=== PATIENT | female | born 1990 | race Caucasian/White ===

== ENCOUNTER 2018-12-18 16:10 | Emergency (ER) | payer OTHER ==
[~2018-12-18] VITALS: Ht 162.6 cm; Wt 69.0 kg
[2018-12-18] MEDS ORDERED: NORCO 5-325 TA1 EAC1 PO (17:00)
[2018-12-18] MEDS ORDERED: KEFLEX500 M1 PO (17:00)
[2018-12-18 17:18] VITALS: BP 127/91
== END 2018-12-18 17:19 | disposition home or self-care (01) ==
LOC: M.ERS 16:10
DX: S51.812A Laceration without foreign body of left forearm, initial encounter (principal); F17.200 Nicotine dependence, unspecified, uncomplicated; W01.198A Fall on same level from slipping, tripping and stumbling with subsequent striking against other object, initial encounter; Y92.89 Other specified places as the place of occurrence of the external cause; Y93.89 Activity, other specified; Y99.8 Other external cause status